=== PATIENT | female | born 1975 | race Caucasian/White ===

== ENCOUNTER 2025-03-23 09:01 | Emergency (ER) | payer MEDICAID, SELFPAY ==
[2025-03-23 09:02] VITALS: BP 147/83; PULSE 70; RESP 16; TEMP 36.4; O2SAT 100; BMI 18.3
[2025-03-23 09:32] LABS: Hematocrit 48.3 % (37-47); Hemoglobin 16.2 g/dL (12.0-15.0); Immature Granulocytes Count 0.030 X10^3/uL (0.0-0.0); Mean Corp Hgb Conc 33.5 g/dL (32-36); Mean Corpuscular Volume 103.4 fL (81-99); Mean Platelet Vol. 10.7 fl (6.2-12.0); NRBC Flagged by Analyzer 0 % (0-5); Platelet Count 194 K/mm3 (150-450); RBC Distribution Width CV 12.6 % (11.6-14.6); RBC Distribution Width SD 47.9 fl (35.1-43.9); Red Blood Count 4.67 M/mm3 (4.2-5.4); White Blood Count 6.3 K/mm3 (4.4-11.0)
--- NOTE | 2025-03-23 09:34 | EX.ED.UPPERE ---
HPI History of Present Illness Chief Complaint: Upper Extremity Injury Detail of Chief Complaint: Right sided pleuritic chest pain Informant: patient Occured/Mechanism Mechanism/Context: Yes injury Onset/Context/Timing Onset: Weeks (Approximately 2 weeks ago) Context: Sudden Onset Timing: Continuous and Waxes and wanes Quality of Pain: Sharp (With pleuritic component) Location: Outer quadrant of right breast Current Severity: Mild Maximum Severity: Moderate Worsened by: Breathing Relieved by: If patient supports her right breast against her chest wall Associated Symptoms Associated Symptoms: Negative for Parasthesia or Weakness Narrative Narrative: Patient is a 49-year-old [id number] woman. She has history of anorexia nervosa. She had an injury approximately 2 years ago. She had MRI that revealed a small rotator cuff tear and inflammation. Approximately 2 weeks ago she was reaching for something and felt a pop in the axillary area. She was seen at urgent care and had x-ray of her shoulder which was interpreted as negative. She has not had a chest x-ray. She is a smoker of 1 pack/day since age of 14. She denies night sweats. She does endorse weight loss due to the anorexia. There is no history of direct trauma. There is no history of VTE. She denies leg pain, swelling discoloration. She denies intolerance to greasy or fried foods. She has no GI symptoms. She has not noted any skin lesions. Prior similar symptoms: Yes Recent Illness/Hospitalization: Yes (Seen at [facility] urgent care. She states he was diagnosed with back strain.) [facility] Medical History (Updated 03/23/25 @ 10:[address] Wojciech Lance MD) Anorexia nervosa Epilepsy Home Medications ?Medication ?Instructions ?Recorded ?Last Taken ?Type naproxen 500 mg tablet 500 mg PO BID #14 tabs 03/23/25 Unknown Rx Allergy/AdvReac Type Severity Reaction Status Date / Time aripiprazole (From Abilify) Allergy Other Verified 03/23/25 09:05 Cephalosporins Allergy Vomiting Verified 03/23/25 09:05 lamotrigine (From Lamictal) Allergy Other Verified 03/23/25 09:05 Social History Smoking Status: Current every day smoker tobacco type: cigarettes ROS ROS ED Constitutional Constitutional ED: Denies chills, fever(s), subjective, sweats or weight loss Cardiovascular Cardiovascular: Reports chest pain; Denies orthopnea, palpitations, paroxysmal nocturnal dyspnea or racing heartbeat Respiratory/Chest Respiratory/Chest: Reports cough and other Details: Cough is nonproductive and patient attributes to the fact that she is a smoker. ; Denies dyspnea, dyspnea on exertion, orthopnea, paroxysmal nocturnal dyspnea or sputum Gastrointestinal Gastrointestinal: Reports other Details: Denies intolerance to greasy or fried foods. ; Denies abdominal pain, constipation, diarrhea, nausea or vomiting Genitourinary Genitourinary ED: Denies dysuria, hematuria or urinary frequency Musculoskeletal Musculoskeletal: Denies back pain or neck pain Integumentary Denies rash Neurologic Neurologic: Denies paresthesias or weakness EXAM Physical Exam Const Vital Signs: 03/23/25 09:02 Temperature 97.6 F L Temperature Source Oral Pulse Rate 70 Respiratory Rate 16 Blood Pressure 147/83 H Blood Pressure Mean 104 Pulse Ox 100 Oxygen Delivery Method Room Air Positive well nourished and well developed General Appearance ED: well developed and NAD HEENT Reports moist mucous membranes normocephalic and atraumatic Eyes PERRL and EOMs intact bilaterally Neck full ROM and supple Chest Wall palpation of chest normal Chest Narrative: Patient does have reproducible pain lateral upper and lower quadrant of her right breast. There is no axillary lymphadenopathy. There is no palpable mass. She states she does have a bump inferior medial quadrant that has been present for years. Resp normal respiratory effort and clear to auscultation bilaterally Effort and Inspection: pain with movement Auscultation: Negative for diminished lung sounds Cardio regular rate, regular rhythm, S1 normal heart sound, S2 normal heart sound and no murmurs GI non-tender, non-distended and no masses Auscultation: normoactive bowel sounds Palpation: soft Back/Spine no CVA tenderness Back/Spine Narrative: Inspection of the back is normal. Extremity normal to inspection and full ROM Extremity Narrative: There is no asymmetry, swelling, discoloration, leg vein distention, palpable cords or tenderness along the distribution of the deep venous system. Neuro oriented x3 and CN's II-XII intact bilaterally Sensorium / Orientation: alert Motor Exam: strength 5/5 throughout Psych mental status grossly normal Skin General Skin Exam: Negative for petechiae Lesions: no lesions Rashes: no rashes MDM MDM MDM Narrative Medical decision making narrative: Patient with pleuritic pain. Wells score is less than 3. Since she is a smoker will obtain chest x-ray to assess for infiltrate, doubt pneumothorax and doubt pulmonary embolus. This could represent pleurisy. Will obtain CBC to assess white count and differential as well as H&H. BMP to assess electrolyte function. Since this is right-sided with pleuritic component cardiac is not a consideration. Patient was treated with IV ketorolac since she has history of opiate abuse and requested no opiates. Lab Data Attestation: I reviewed the patient's lab results. Lab results narrative: CBC reveals elevated H&H with MCV of 103.4 and MCH of 34.7 which are all elevated. Labs: Laboratory Results - last 24 hr 03/23/25 09:25 WBC 6.3 RBC 4.67 Hgb 16.2 H Hct 48.3 H MCV 103.4 H MCH 34.7 H MCHC 33.5 RDW Std Deviation 47.9 H RDW Coeff of Jonny 12.6 Plt Count 194 MPV 10.7 Immature Gran % (Auto) 0.500 Neut % (Auto) 63.4 Lymph % (Auto) 24.3 Beltrami % (Auto) 7.8 Eos % (Auto) 3.0 Baso % (Auto) 1.0 Absolute Neuts (auto) 4.0 Absolute Lymphs (auto) 1.52 Nucleated RBC % 0 Radiography Chest X-Ray - ED: 2 View, Read by ED Physician, Normal, Heart, Mediastinum, Bony Structures and No Acute Disease (Patient has evidence of hyperaeration. There is no effusion or infiltrate noted. Independent reviewed interpreted by me at 1005.) Treatment and Re-Evaluation Narrative: Patient does report improvement after IV ketorolac. Will discharge with prescription for Naprosyn. She is to keep her scheduled appointment. Discharge Plan Triage Chief Complaint: Upper Extremity Injury ED Provider: Wojciech Lance Dx/Rx/DC Orders Clinical Impression: Pleuritic chest pain, Tobacco use, Elevated blood pressure reading without diagnosis of hypertension, Anemia, pernicious Instructions: ED Hypertension, To Be Confirmed, ED Pleurisy Prescriptions: New naproxen 500 mg tablet 500 mg PO BID Qty: 14 0RF Primary Care Provider: Casandra Correia Referrals: Casandra Correia MD [Primary Care Provider, Family Practice] - Keep Mino appointment Print Language: Bhutanese Disposition Disposition: Home, Self Care Discharge Date/Time: 03/23/25 11:36
--- NOTE | 2025-03-23 09:50 | RAD_ITS ---
PROCEDURE: CHEST PA AND LATERAL 03/23/2025 REASON FOR EXAM: RIGHT-SIDED CHEST PAIN TECHNIQUE: Procedure Code: RADCXR Modality: DX Procedure: CHEST PA AND LATERAL COMPARISON: None FINDINGS: Hardware: EKG electrodes are seen. Heart: The heart size is normal. Mediastinum: The mediastinal contour is unremarkable. Lungs: Hyperinflation. Scattered calcified granulomas. No acute abnormality is seen. Bones: Osteopenia of the thoracic vertebrae. RAD/Chest PA and Lateral IMPRESSION: Hyperinflation. The lungs are clear. Reading Location: [id number]
--- NOTE | 2025-03-23 09:52 | ED.RN ---
pt self administered her own med 0.5 mg ativan po, approved by [facility].
[2025-03-23 10:28] LABS: AST(SGOT) 27 U/L (<=31); Alanine Aminotransfer ALT/SGPT 19 U/L (<=34); Albumin, Serum 4.7 g/dL (3.5-5.0); Alkaline Phosphatase 96 U/L (35-104); Anion Gap 14 (5-15); BUN 7 mg/dL (4-19); BUN/Creat Ratio 9.9 RATIO (10-20); Calcium,Total 9.9 mg/dL (7.6-11.0); Carbon Dioxide 23.2 mmol/L (21.0-32.0); Chloride 103 mmol/L (98-108); Estimated Creatinine Clearance 83.21 ml/min (50-250); Globulin 3.4 g/dL (2.2-4.2); Glucose 96 mg/dL (70-99); Potassium 4.2 mmol/L (3.3-5.1)
[2025-03-23 11:19] VITALS: BP 115/92; PULSE 85; RESP 16; TEMP 36.9; O2SAT 99
--- NOTE | 2025-03-23 13:48 | CM.ED ---
Social Work Reason for visit: No PCP Patient clarified that she does have a PCP, however she has not yet had her first appointment. Patient was interested in [facility] provider list as she is uncertain if she will stay with her current doctor. Brochure given. Daxa Johnson, TEST BORING CREW CHIEF, HOG PUSHER
== END 2025-03-23 11:36 | disposition home or self-care (01) ==
PROVIDERS: Emergency Provider Emergency Medicine; PCP Pediatrics; Visit Provider Emergency Medicine
DX: R07.81 Pleurodynia (principal); D51.0 Vitamin B12 deficiency anemia due to intrinsic factor deficiency; R03.0 Elevated blood-pressure reading, without diagnosis of hypertension; F17.210 Nicotine dependence, cigarettes, uncomplicated
CPT/HCPCS: 71046; 80053; 85025; 96374; 99284; A4216

== ENCOUNTER 2025-04-23 08:54 | Emergency (ER) | payer MEDICAID, SELFPAY ==
[2025-04-23 08:55] VITALS: BP 107/90; PULSE 79; RESP 18; TEMP 36.6; O2SAT 95; BMI 17.2
--- NOTE | 2025-04-23 09:17 | EX.ED.VIS.HA ---
HPI History of Present Illness Chief Complaint: Headache Informant: patient Narrative Narrative: Patient is a 49-year-old female with a history of brain cavernoma and epilepsy, presenting with a bifrontal retro-orbital headache for one week. - Reports headache onset last weekend, localized behind the eyes, with waxing and waning intensity. Has had headaches like this before but since this one is persistent, she is worried her carvernoma may have an acute issue. - Associated symptoms include blurred vision and nausea. - Denies photophobia, emesis, or fever. - Denies thunderclap onset or LOC. - Denies changes in arm or leg sensation, or ability to speak or understand others. - Reports mild confusion, difficulty recalling names from last year. - Has tried warm and cold compresses for relief; hesitant to use prescribed naproxen. - Undergoes MRI every 6 months at [facility] for cavernoma monitoring. - Takes Vimpat for epilepsy; experiences focal seizures every other day or so, described as brief episodes of d?j? vu without LOC. No changes in this in the past week. No head injuries. [facility] Medical History (Updated 04/23/25 @ 10:[address] Khari Labmert MD) Cerebral cavernous malformation Anorexia nervosa Epilepsy Home Medications ?Medication ?Instructions ?Recorded ?Last Taken ?Type naproxen 500 mg tablet 500 mg PO BID #14 tabs 03/23/25 Unknown Rx metoclopramide HCl 10 mg tablet 10 mg PO Q6H PRN nausea and 04/23/25 Unknown Rx vomiting #20 tabs Allergy/AdvReac Type Severity Reaction Status Date / Time aripiprazole (From Abilify) Allergy Other Verified 04/23/25 08:55 Cephalosporins Allergy Vomiting Verified 04/23/25 08:55 lamotrigine (From Lamictal) Allergy Other Verified 04/23/25 08:55 Social History Smoking Status: Current every day smoker tobacco type: cigarettes ROS ROS ED Constitutional Constitutional ED: Denies chills or fever(s) Eyes Eyes: Reports blurry vision; Denies diplopia ENT ENT ED: Denies ear pain or sore throat Cardiovascular Cardiovascular: Denies chest pain or palpitations Respiratory/Chest Respiratory/Chest: Denies cough or dyspnea Gastrointestinal Gastrointestinal: Reports nausea and vomiting; Denies abdominal pain or diarrhea Genitourinary Genitourinary ED: Denies dysuria or urinary frequency Musculoskeletal Musculoskeletal: Denies back pain or myalgias Integumentary Denies abscess or rash Neurologic Neurologic: Reports headache(s); Denies paresthesias or weakness EXAM Physical Exam Const Vital Signs: 04/23/25 08:55 Temperature 97.8 F Temperature Source Oral Pulse Rate 79 Respiratory Rate 18 Blood Pressure 107/90 H Blood Pressure Mean 95 Pulse Ox 95 Oxygen Delivery Method Room Air Positive well nourished and well developed General Appearance ED: well developed and NAD HEENT Reports normocephalic and moist mucous membranes atraumatic Face and Sinus: Negative for sinus tenderness Eyes PERRL, EOMs intact bilaterally and conjunctivae normal Eyes Narrative: mild photophobia Neck no lymphadenopathy, supple and no meningeal signs Resp normal respiratory effort and clear to auscultation bilaterally GI non-tender and non-distended Palpation: soft Extremity normal to inspection and full ROM Neuro oriented x3 and CN's II-XII intact bilaterally Sensorium / Orientation: awake and alert Speech: speech normal Gait (Neuro): normal gait Motor Exam: strength 5/5 throughout Psych mental status grossly normal Skin Lesions: no lesions Rashes: no rashes MDM MDM MDM Narrative Medical decision making narrative: Assessment: The patient is a 49-year-old female with 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 Symptoms are atypical for her but exam and history reveal no focal neurologic deficits. Head CT shows a 1.5 cm calcified lesion near the right lateral ventricle consistent with the known cavernoma and no acute hemorrhage. Given the normal CT and marked improvement after Reglan, Benadryl, and Toradol, a vascular headache/migraine is the most likely cause; the cavernoma is not contributing acutely. Plan: - Established IV access; administered IV metoclopramide 10 mg, diphenhydramine 25 mg, and ketorolac 30 mg for migraine relief - Prescribed metoclopramide for home use as needed - Discharge home with instructions to follow up with neurology for routine MRI surveillance of cavernoma and headache management; patient comfortable with plan Diagnostics: - CT head: 1.5 cm calcification adjacent to right lateral ventricle consistent with known cavernoma; no intracranial hemorrhage, no mass effect Reevaluations: - Patient re-examined after medication administration; headache significantly improved and agrees with discharge plan History & Record Review Additional record(s) reviewed:: Prior outpatient record ([facility] MRI results from 01/2025 - R hippocampal cavernous malformation, stable) Radiography Diagnostic Testing: Clinical Impression(s) from Imaging Studies Brain CT 04/23/25 09:30 IMPRESSION: A 1.5 dense mass near the temporal horn of the right lateral ventricle which shows coarse calcifications and can be consistent with known history of cavernous malformation. Please correlate with old images. MRI with contrast can be helpful for further evaluation if clinically warranted. Otherwise, no acute intracranial abnormalities. Reading Location: [facility] Discharge Plan Triage Chief Complaint: Headache ED Provider: Khari Lambert Dx/Rx/DC Orders Clinical Impression: Headache, migraine, Cerebral cavernoma, Localization-related (focal) (partial) symptomatic epilepsy and epileptic syndromes with complex partial seizures, not intractable, without status epilepticus Instructions: ED, Migraine (Classical) Prescriptions: New metoclopramide HCl 10 mg tablet 10 mg PO Q6H PRN (Reason: nausea and vomiting) Qty: 20 0RF No Action naproxen 500 mg tablet 500 mg PO BID Qty: 14 0RF Primary Care Provider: Casandra Correia Referrals: Casandra Correia MD [Primary Care Provider, Family Practice] Activity Restrictions/Additional Instructions: - A prescription for metoclopramide (Reglan) has been sent to your pharmacy?use it at home as needed for headache relief. - CT scan of your head showed no bleeding and demonstrated calcification consistent with your known cavernoma; no urgent MRI is required at this time. - Monitor your headaches and any changes in your vision; return for further evaluation if symptoms worsen, persist, or change in pattern. Print Language: Turkmen Disposition Disposition: Home, Self Care
[2025-04-23] MEDS: DiphenhydrAMINE 50 MG/ML Syringe 25 MG IV (09:22)
--- NOTE | 2025-04-23 09:30 | CT_ITS ---
PROCEDURE: CT/Brain/Head without Contrast
--- NOTE | 2025-04-23 09:45 | CM.ED ---
Social Work Date of referral: 04/23/25 Reason for referral: Advanced Care Directives (ACD's) not on file. Referred by: Social Work Identification Patient provided consent to social work visit. Bailiff requested a copy of ACD's which patient agreed to bring in. Lily Haywood, MANAGER VIDEO, WRAPPER DIPPER
[2025-04-23 11:04] VITALS: BP 116/69; PULSE 70; RESP 18; TEMP 36.8; O2SAT 100
== END 2025-04-23 11:17 | disposition home or self-care (01) ==
PROVIDERS: Emergency Provider Emergency Medicine; PCP Pediatrics; Visit Provider Emergency Medicine
DX: G40.209 Localization-related (focal) (partial) symptomatic epilepsy and epileptic syndromes with complex partial seizures, not intractable, without status epilepticus (principal); G43.909 Migraine, unspecified, not intractable, without status migrainosus; Q28.3 Other malformations of cerebral vessels; F17.210 Nicotine dependence, cigarettes, uncomplicated
CPT/HCPCS: 70450; 96374; 96375; 99283; A4216